=== PATIENT | female | born 1940 | race Caucasian/White ===

== ENCOUNTER 2017-06-25 22:11 | Inpatient (IN) | payer MEDICARE, OTHER ==
[~2017-06-25] VITALS: Ht 167.6 cm; Wt 68.0 kg
[~2017-06-25 22:11] MED LIST: ASPIRIN81 MG PO; CALCIUM; CYCLOBENZAPRINE5 MG PO; LISINOPRIL HCTZ1 TA1 PO; NORCO1 TA1 PO; PRILOSEC20 MG PO; VOL50 PO
[2017-06-26] VITALS (12 sets, daily range): BP systolic 91–125; BP diastolic 63–74; Ht 167.6 cm; Wt 68.0 kg
[2017-06-26 00:30] LABS: UA SPECIFIC GRAVITY <=1.005 (1.005-1.035); microscopic required? YES; urine erythrocyte 1+ (NEGATIVE)
[2017-06-26 00:40] LABS: BASOPHIL % 0.4 % (0-2); PLATELET COUNT 331 x10^3mcL (130-400)
[2017-06-26 00:48] LABS: CALCIUM 7.8 mg/dL (8.5-10.1); CARBON DIOXIDE 25.4 mmol/L (21-32); CHLORIDE SERUM 102 mmol/L (98-107); CREATININE SERUM 0.9 mg/dL (0.6-1.0); GLUCOSE SERUM 164 mg/dL (74-106); POTASSIUM SERUM 3.3 mmol/L (3.5-5.1); SODIUM SERUM 137 mmol/L (136-145)
[2017-06-26 00:51] LABS: RED CELL DISTRIBUTION WIDTH 15.3 % (11.5-14.5)
[2017-06-26 00:53] LABS: ALKALINE PHOSPHATASE 89 U/L (46-116); ALT/SGPT 22 U/L (14-59); AST/SGOT 32 U/L (15-37); BILIRUBIN TOTAL 1.1 mg/dL (0.20-1.00); TOTAL PROTEIN, SERUM 6.4 g/dL (6.4-8.2)
[2017-06-26 00:54] LABS: ALBUMIN 2.7 g/dL (3.4-5.0)
[2017-06-26 01:08] LABS: CK-MB 8.9 ng/mL (0-3.6)
[2017-06-26] MEDS ORDERED: HYDROCHLOROTH12.5 M2 PO (02:52)
[2017-06-26 03:08] LABS: MAGNESIUM 1.5 mg/dL (1.8-2.4); PHOSPHOROUS 2.2 mg/dL (2.5-4.9)
[2017-06-26 03:13] LABS: T3 TOTAL 0.94 ng/mL
[2017-06-26 03:21] LABS: FREE T4 1.46 ng/dL (0.76-1.46); FREE THYROXINE INDEX 3.4 ug/dL (1.4-4.5)
[2017-06-26 04:14] LABS: CHOLESTEROL/HDL RATIO 1.9
[2017-06-26 04:52] LABS: AMPHETAMINE QUAL UR NONE DETECTED (NEG <=1000)
[2017-06-27 05:45] VITALS: BP 116/68
[2017-06-27 06:22] LABS: PLATELET COUNT 255 x10^3mcL (130-400)
[2017-06-27 06:43] LABS: RED CELL DISTRIBUTION WIDTH 15.1 % (11.5-14.5)
[2017-06-27 06:49] LABS: CALCIUM 7.8 mg/dL (8.5-10.1); CARBON DIOXIDE 24.5 mmol/L (21-32); CHLORIDE SERUM 107 mmol/L (98-107); CREATININE SERUM 0.8 mg/dL (0.6-1.0); GLUCOSE SERUM 103 mg/dL (74-106); MAGNESIUM 2.5 mg/dL (1.8-2.4); PHOSPHOROUS 2.1 mg/dL (2.5-4.9); SODIUM SERUM 138 mmol/L (136-145)
[2017-06-27 09:20] VITALS: BP 120/67
[2017-06-27 10:31] LABS: BAND NEUTROPHIL 3 % (0-10); BASOPHIL 0 % (0-2); MONOCYTE 17 % (0-7); SEGMENTED NEUTROPHILS 65 % (37-75)
[2017-06-27 10:34] LABS: ovalocyte/elliptocyte 1+; rbc morphology (normal/abnorm) ABNORMAL (NORMAL); schistocyte (helmet cell) 1+
[2017-06-27 13:20] VITALS: BP 129/75
[2017-06-27 16:56] VITALS: BP 112/64
[2017-06-27 17:30] VITALS: BP 115/64
[2017-06-27 20:58] VITALS: BP 129/69
[2017-06-28 05:38] VITALS: BP 152/88
[2017-06-28 06:27] LABS: PHOSPHOROUS 2.1 mg/dL (2.5-4.9)
[2017-06-28 06:35] LABS: CALCIUM 7.6 mg/dL (8.5-10.1); CARBON DIOXIDE 24.2 mmol/L (21-32); CHLORIDE SERUM 106 mmol/L (98-107); CREATININE SERUM 0.8 mg/dL (0.6-1.0); GLUCOSE SERUM 110 mg/dL (74-106); POTASSIUM SERUM 4.2 mmol/L (3.5-5.1); SODIUM SERUM 139 mmol/L (136-145)
[2017-06-28 06:43] LABS: BASOPHIL % 0.2 % (0-2); PLATELET COUNT 349 x10^3mcL (130-400)
[2017-06-28 06:49] LABS: RED CELL DISTRIBUTION WIDTH 14.7 % (11.5-14.5)
[2017-06-28 10:54] VITALS: BP 153/87
[2017-06-28 14:35] VITALS: BP 125/66
[2017-06-28 17:35] VITALS: BP 128/71
[2017-06-28 20:59] VITALS: BP 103/55
[2017-06-29 05:45] VITALS: BP 110/65
[2017-06-29 06:45] LABS: BASOPHIL % 0.4 % (0-2); PLATELET COUNT 360 x10^3mcL (130-400)
[2017-06-29 06:51] LABS: RED CELL DISTRIBUTION WIDTH 15.1 % (11.5-14.5)
[2017-06-29 13:20] VITALS: BP 126/75
[2017-06-29 17:39] VITALS: BP 134/71
[2017-06-29 22:46] VITALS: BP 138/83
[2017-06-30 05:29] VITALS: BP 132/79
[2017-06-30 09:55] VITALS: BP 144/92
[2017-06-30] MEDS ORDERED: COR3 PO (09:57)
[2017-06-30] MEDS ORDERED: ZES10 PO (09:57)
[2017-06-30] MEDS ORDERED: PRI20 PO (09:58)
[2017-06-30] MEDS ORDERED: CLOPIDOGREL75 M1 PO (10:00)
[2017-06-30 10:08] VITALS: BP 132/79
[2017-06-30] MEDS ORDERED: LEVAQUIN750 MG PO (10:11)
== END 2017-06-30 11:55 | disposition home health service (06) | DRG 286 ==
LOC: ED 22:11 → DU 06-26 02:05
PROVIDERS: Emergency Medicine; Internal Medicine Interventional Cardiology; ADMIT Family Medicine
PROC: B2111ZZ Fluoroscopy of Multiple Coronary Arteries using Low Osmolar Contrast (ICD-10-PCS; 2017-06-26)
PROC: B2151ZZ Fluoroscopy of Left Heart using Low Osmolar Contrast (ICD-10-PCS; 2017-06-26)
PROC: 4A023N7 Measurement of Cardiac Sampling and Pressure, Left Heart, Percutaneous Approach (ICD-10-PCS; principal; 2017-06-26 14:00)
PROC: 0DB58ZX Excision of Esophagus, Via Natural or Artificial Opening Endoscopic, Diagnostic (ICD-10-PCS; 2017-06-29)
PROC: 0DB68ZX Excision of Stomach, Via Natural or Artificial Opening Endoscopic, Diagnostic (ICD-10-PCS; 2017-06-29)
DX: I51.81 Takotsubo syndrome (principal); E43 Unspecified severe protein-calorie malnutrition; N39.0 Urinary tract infection, site not specified; I24.8 Other forms of acute ischemic heart disease; K29.70 Gastritis, unspecified, without bleeding; I25.10 Atherosclerotic heart disease of native coronary artery without angina pectoris; E87.6 Hypokalemia; E83.39 Other disorders of phosphorus metabolism; E83.42 Hypomagnesemia; Z68.24 Body mass index [BMI] 24.0-24.9, adult; Z85.41 Personal history of malignant neoplasm of cervix uteri; Z90.710 Acquired absence of both cervix and uterus; Z86.718 Personal history of other venous thrombosis and embolism
CPT/HCPCS: CLHCL; 43235; 82962; 83880; 84439; C1769; C1887; C1894; J0696; J1200; J1610; J1644; J1885; J2001; J2250; J2310; J2405; J3010; J3475; J3480; J3490; J7030; J7050; Q0092; Q9967